=== PATIENT | female | born 1960 | race Two or more races ===

== ENCOUNTER → 2019-03-06 | Emergency (ER) | payer OTHER ==
[~2019-03-06] VITALS: Ht 152.4 cm; Wt 67.1 kg
[~2019-03-06] MED LIST: ATACAND16 MG; ATORVASTATIN CA10 MG; FOSAMAX70 MG; INTESTINEX680 M1 PO; PEPCID AC20 MG PO; PHENERGAN25 MG PO; SIMPONI50 MG/0.1; ZANTAC 7575 MG
== END | disposition home or self-care (01) ==
LOC: ER 00:35
DX: K52.9 Noninfective gastroenteritis and colitis, unspecified (principal)

== ENCOUNTER 2021-09-30 17:32 | Emergency (ER) | payer OTHER ==
[~2021-09-30] VITALS: Ht 152.4 cm; Wt 64.9 kg
[2021-09-30] MEDS ORDERED: ACID REDUCER20 M1 PO (18:05)
[2021-09-30] MEDS ORDERED: NASAL MIST126 ML (18:05)
[2021-09-30] MEDS ORDERED: VITAMIN D210 MCG PO (18:06)
[2021-09-30] MEDS ORDERED: FISH OIL 1,0001 EAC1 PO (18:07)
== END 2021-09-30 22:04 | disposition home or self-care (01) ==
LOC: ER 17:32
DX: R00.2 Palpitations (principal); I10 Essential (primary) hypertension

== ENCOUNTER 2022-04-05 23:13 | Emergency (ER) | payer OTHER ==
[~2022-04-05] VITALS: Ht 152.4 cm; Wt 67.6 kg
[~2022-04-05 23:13] MED LIST changes: +ACID REDUCER20 M1 PO; +FISH OIL 1,0001 EAC1 PO; +NASAL MIST126 ML; +VITAMIN D210 MCG PO
[2022-04-05] MEDS ORDERED: TOPROL XL25 M1 (23:33)
[2022-04-05] MEDS ORDERED: FOLIC ACID0.8 M1 (23:33)
[2022-04-05] MEDS ORDERED: LIPITOR20 MG (23:34)
[2022-04-05] MEDS ORDERED: VITAMIN D-40010 MCG (23:34)
[2022-04-05] MEDS ORDERED: DIOVAN160 M1 (23:34)
[2022-04-05] MEDS ORDERED: FISH OIL 1,0001 EAC1 (23:34)
[2022-04-05] MEDS ORDERED: METHOTREXATE2.5 MG (23:35)
[2022-04-05] MEDS ORDERED: PROLIA60 MG/1 ML (23:35)
[2022-04-05] MEDS ORDERED: PRILOSEC OTC20 MG (23:36)
[2022-04-05] MEDS ORDERED: MILLIPRED5 MG (23:36)
[2022-04-06] MEDS ORDERED: NORFLEX100MG PO (03:03)
[2022-04-06] MEDS ORDERED: MECLIZINE HCL25 MG PO (03:03)
[2022-04-06] MEDS ORDERED: KETO10TA2 PO (03:03)
== END 2022-04-06 04:15 | disposition home or self-care (01) ==
LOC: ER 23:13
DX: M54.2 Cervicalgia (principal); M25.511 Pain in right shoulder; R42 Dizziness and giddiness; Z88.2 Allergy status to sulfonamides; Z88.6 Allergy status to analgesic agent

== ENCOUNTER 2022-11-23 20:13 | Emergency (ER) | payer OTHER ==
[~2022-11-23] VITALS: Ht 152.4 cm; Wt 68.9 kg
[~2022-11-23 20:13] MED LIST changes: +DIOVAN160 M1; +FISH OIL 1,0001 EAC1; +FOLIC ACID0.8 M1; +KETO10TA2 PO; +LIPITOR20 MG; +MECLIZINE HCL25 MG PO; +METHOTREXATE2.5 MG; +MILLIPRED5 MG; +NORFLEX100MG PO; +PRILOSEC OTC20 MG; +PROLIA60 MG/1 ML; +TOPROL XL25 M1; +VITAMIN D-40010 MCG
== END 2022-11-23 23:44 | disposition home or self-care (01) ==
LOC: ER 20:13
DX: S61.451A Open bite of right hand, initial encounter (principal); W54.0XXA Bitten by dog, initial encounter; Y93.9 Activity, unspecified; Y92.9 Unspecified place or not applicable; Y99.9 Unspecified external cause status; Z88.2 Allergy status to sulfonamides; Z88.1 Allergy status to other antibiotic agents; Z88.6 Allergy status to analgesic agent

== ENCOUNTER 2023-05-06 10:51 | Emergency (ER) | payer OTHER ==
[~2023-05-06] VITALS: Ht 152.4 cm; Wt 68.9 kg
[2023-05-06] MEDS ORDERED: CIPRO500 MG PO (16:54)
[2023-05-06] MEDS ORDERED: PEPCID AC20 MG PO (16:54)
== END 2023-05-06 17:40 | disposition home or self-care (01) ==
LOC: ER 10:51
DX: N39.0 Urinary tract infection, site not specified (principal); M19.90 Unspecified osteoarthritis, unspecified site; I10 Essential (primary) hypertension; Z88.6 Allergy status to analgesic agent; Z88.2 Allergy status to sulfonamides; M06.8A Other specified rheumatoid arthritis, other specified site; H93.19 Tinnitus, unspecified ear; M81.8 Other osteoporosis without current pathological fracture; J32.8 Other chronic sinusitis

== ENCOUNTER 2023-09-02 18:15 | Emergency (ER) | payer OTHER ==
[~2023-09-02] VITALS: Ht 152.4 cm; Wt 67.1 kg
[~2023-09-02 18:15] MED LIST changes: +CIPRO500 MG PO
[2023-09-02 22:32] LABS: HEMOGLOBIN 13.3 g/dL (12.0-15.00); MEAN CELL VOLUME 80.8 fL (80.00-100.00); MEAN CORPUSCULAR HEMOGLOBIN 28.4 pg (27.00-32.0); MEAN CORPUSCULAR HGB CONC 35.1 g/dl (32.0-36.0); PLATELET COUNT 236 K/uL (150-450); RED BLOOD COUNT 4.71 M/uL (4.00-6.00); RED CELL DISTRIBUTION WIDTH 14.6 % (11.5-14.5)
[2023-09-02 23:03] LABS: ALBUMIN 3.7 gm/dL (3.4-5.0); BILIRUBIN TOTAL 0.42 mg/dL (0.3-1.2); CALCIUM 9.1 mg/dL (8.5-10.1); CREATININE SERUM 0.86 mg/dL (0.55-1.02); GFR 66.43; GLOBULINA 3.7 G/DL (2.4-3.5); POTASSIUM 3.95 mEq/L (3.5-5.1); TOTAL PROTEIN 7.4 gm/dL (6.4-8.2)
== END 2023-09-03 01:19 | disposition home or self-care (01) ==
LOC: ER 18:15
PROVIDERS: General Practice
DX: M94.0 Chondrocostal junction syndrome [Tietze] (principal); Z88.2 Allergy status to sulfonamides; Z91.09 Other allergy status, other than to drugs and biological substances; I10 Essential (primary) hypertension

== ENCOUNTER 2023-09-14 08:35 | Emergency (ER) | payer OTHER ==
[~2023-09-14] VITALS: Ht 152.4 cm; Wt 66.2 kg
== END 2023-09-14 10:34 | disposition home or self-care (01) ==
LOC: ER 08:35
DX: M25.511 Pain in right shoulder (principal)

== ENCOUNTER 2024-08-18 09:28 | Emergency (ER) | payer OTHER ==
[~2024-08-18] VITALS: Ht 152.4 cm; Wt 70.8 kg
[2024-08-18] MEDS ORDERED: MEPERIDINE HCL/PF 25 MG/ML VIAL IM ONE (10:15)
== END 2024-08-18 13:10 | disposition home or self-care (01) ==
LOC: ER 09:29
DX: M25.572 Pain in left ankle and joints of left foot (principal); I10 Essential (primary) hypertension; Z88.1 Allergy status to other antibiotic agents; Z88.2 Allergy status to sulfonamides; Z88.5 Allergy status to narcotic agent